=== PATIENT | male | born 1955 | race African-American/Black ===

== ENCOUNTER 2016-09-17 15:14 | Emergency (ER) | payer MEDICARE, OTHER ==
[~2016-09-17] VITALS: Ht 167.6 cm; Wt 102.3 kg
[~2016-09-17 15:14] MED LIST: ATEN-187 PO; CITA20TA9 PO; DIVA500T52 PO; FEBU80TA PO; LISI20TA PO
[2016-09-17 15:25] VITALS: BP 177/100
== END 2016-09-17 17:45 | disposition left against medical advice (07) ==
LOC: EMS 15:18
DX: G89.29 Other chronic pain (principal); M79.671 Pain in right foot; F17.210 Nicotine dependence, cigarettes, uncomplicated; I10 Essential (primary) hypertension; I25.2 Old myocardial infarction; Z95.5 Presence of coronary angioplasty implant and graft
CPT/HCPCS: 99284